=== PATIENT | female | born 1990 | race Caucasian/White ===

== ENCOUNTER → 2019-11-06 | Outpatient (CLI) | payer BC ==
--- NOTE | 2019-11-06 12:06 | US ---
EXAMINATION TYPE: US thyroid st tissue head/neck DATE OF EXAM: 11/06/2019 COMPARISON: NONE CLINICAL HISTORY: 29-year-old female E04.9 NON TOXIC GOITER. Goiter, patient states that the physicia n may have felt thyroid enlarged TECHNIQUE: Multiple sonographic images of the thyroid gland are obtained. FINDINGS: GLAND SIZE: Right Lobe: 4.5 x 1.4 x 1.4 cm Overall Parenchyma: Relatively homogeneous Left Lobe: 4.0 x 1.1 x 1.4 cm Overall Parenchyma: Relatively homogeneous Isthmus Thickness: 0.2 cm NODULES RIGHT: # of nodules measured on right: 1 1. 0.4 X 0.3 x 0.4 cm colloid cyst at the lower pole with well-defined margins. Prior size: No prior LEFT: # of nodules measured on left: 1 1. 0.5 X 0.3 x 0.4 cm hypoechoic solid nodule at the mid pole with well-defined margins; This nodu le is wider than tall and shows intranodular vascularity. Prior size: No prior Bilateral neck scanned, no evidence of lymphadenopathy. IMPRESSION: A subcentimeter nodule on each side, benign colloid cyst on the right and a 5 mm nonspecific solid no dule on the left.
== END | disposition home or self-care (01) ==
LOC: RADUSWWP 10:04
PROVIDERS: ATTEND Family Medicine
DX: E04.2 Nontoxic multinodular goiter (principal)
CPT/HCPCS: 76536